=== PATIENT | female | born 1955 | race Two or more races ===

== ENCOUNTER 2020-03-01 09:57 | Emergency (ER) | payer OTHER, MEDICAID ==
[~2020-03-01] VITALS: Ht 160 cm; Wt 63.5 kg
[2020-03-01 10:04] VITALS: BP 188/85
[2020-03-01] MEDS ORDERED: traMADol HCL 50 MG TAB PO ONE (10:15)
== END 2020-03-01 11:17 | disposition home or self-care (01) ==
LOC: ER 09:57
DX: I10 Essential (primary) hypertension (principal); G62.9 Polyneuropathy, unspecified; F17.210 Nicotine dependence, cigarettes, uncomplicated; Z76.0 Encounter for issue of repeat prescription

== ENCOUNTER 2020-06-03 11:28 | Emergency (ER) | payer OTHER, MEDICAID ==
[~2020-06-03] VITALS: Ht 157.5 cm; Wt 63.5 kg
[2020-06-03 12:10] VITALS: BP 140/68
[2020-06-03] MEDS ORDERED: traMADol HCL 50 MG TAB PO ONE (13:15)
== END 2020-06-03 14:02 | disposition home or self-care (01) ==
LOC: ER 11:28
DX: G89.29 Other chronic pain (principal)

== ENCOUNTER 2024-04-01 14:12 | Inpatient (IN) | payer OTHER, MEDICAID ==
[~2024-04-01] VITALS: Ht 157.5 cm; Wt 63.5 kg
[2024-04-01] MEDS ORDERED: ONDANSETRON HCL 4 MG/2 ML VIAL IV PRN (18:00)
[2024-04-01] MEDS ORDERED: DEXTROSE (50%) 50ML SYRG IV PRN (18:00)
[2024-04-01] MEDS ORDERED: VANCOMYCIN PER PHARMACY 0 MG IV SCH (18:00)
[2024-04-01] MEDS ORDERED: ACETAMINOPHEN 325 MG TAB PO PRN (18:00)
[2024-04-01 18:21] VITALS: BP 158/72; PULSE 84; RESP 18; TEMP 97.4; O2SAT 95
[2024-04-01] MEDS ORDERED: INFLUENZA QUAD 2023-2024 0.5 ML SYRG IM ONE (18:45)
[2024-04-01] MEDS ORDERED: PNEUMOCOCCAL VACC POLYS 25 MCG/0.5 ML VIAL IM ONE (18:45)
[2024-04-01] MEDS ORDERED: GABA-339 PO (18:46)
[2024-04-01] MEDS ORDERED: TRAM50TA2 PO (18:46)
[2024-04-01 20:00] VITALS: PULSE 92; RESP 16; O2SAT 96
[2024-04-01 21:00] VITALS: BP 148/60; PULSE 92; RESP 16; TEMP 98.1; O2SAT 96
[2024-04-01] MEDS: PIPERACILLIN-TAZOB 3.375GM 100 ML IV ONE (21:24)
[2024-04-01] MEDS ORDERED: VANCOMYCIN 1GM/200ML 200 ML IV ONE (22:15)
[2024-04-01] MEDS: HYDROcodone-ACET 5/325MG TAB PO PRN (22:37)
[2024-04-01] MEDS: HEPARIN SODIUM (PORCINE) 5000 UNITS/ML 1ML VIAL SC SCH (22:40)
[2024-04-01] MEDS: VANCOMYCIN 1GM/200ML 200 ML IV ONE (22:41)
[2024-04-01] MEDS: ACCU-CHEK COMFORT CURVE STRIP VI SCH (22:55)
[2024-04-01] MEDS: InsuLIN REG 1unit/0.01ml Soln (100units/ml) SC SCH (22:57)
[2024-04-02] VITALS (7 sets, daily range): BP systolic 130–155; BP diastolic 52–71; PULSE 72–92; RESP 16–19; TEMP 97.8–98.6; O2SAT 94–98
[2024-04-02] MEDS: MORPHINE SULFATE INJ 2 MG/ml SYRG IV PRN (04:06)
[2024-04-02] MEDS: PIPERACILLIN-TAZOB 3.375GM 100 ML IV SCH (05:38)
[2024-04-02] MEDS: InsuLIN REG 1unit/0.01ml Soln (100units/ml) SC SCH (06:35)
[2024-04-02 06:46] LABS: Basophils # (auto) 0 10 ^3/uL (0-0.2); Basophils % (auto) 0.3 % (0.0-2.0); Eosinophils # (auto) 0.1 10 ^3/uL (0-0.8); Eosinophils % (auto) 1.2 % (0.0-7.0); Hematocrit 29.6 % (36.0-46.0); Lymphocytes # (auto) 1.6 10 ^3/uL (0.4-5.4); Mean Corpuscular Hemoglobin 30.2 pg (28.0-32.0); Mean Corpuscular Hgb Conc. 33.9 g/dL (32.0-36.0); Mean Corpuscular Volume 89.1 fL (80.0-100.0); Monocytes # (auto) 0.6 10 ^3/uL (0-1.3); Neutrophils # (auto) 5.2 10 ^3/uL (1.6-8.6); Neutrophils % (auto) 69.5 % (37.0-80.0); Red Blood Cells 3.32 10^6/uL (4.0-5.20); Red Cell Distribution Width 14.1 % (11.8-14.3); White Blood Cell 7.5 10^3/uL (4.4-10.8)
[2024-04-02 07:08] LABS: Calcium 8.2 mg/dL (8.7-10.4); Chloride 98 mmol/L (98-107); Potassium 3.8 mmol/L (3.5-5.1); Sodium 132 mmol/L (136-145)
[2024-04-02 07:09] LABS: Anion Gap 3 (5-15); Carbon Dioxide 31 mmol/L (20-30)
[2024-04-02 07:14] LABS: Glucose 291 mg/dL (74-106)
[2024-04-02 08:49] LABS: BUN/Creatinine Ratio 18.6 (10.0-20.0); Blood Urea Nitrogen 18 mg/dL (9-23)
[2024-04-02] MEDS: GABAPENTIN 300 MG CAP PO ONE (15:29)
[2024-04-02] MEDS: VANCOMYCIN 1GM/200ML 200 ML IV SCH (18:10)
[2024-04-02] MEDS: INSULIN LANTUS (GLARGINE) 1 /0.01ml (100units/ml) SC SCH (21:44)
[2024-04-03] VITALS (7 sets, daily range): BP systolic 121–149; BP diastolic 55–72; PULSE 57–92; RESP 18–22; TEMP 97.6–98.4; O2SAT 95–100
[2024-04-03 09:00] LABS: Basophils # (auto) 0 10 ^3/uL (0-0.2); Basophils % (auto) 0.5 % (0.0-2.0); Eosinophils # (auto) 0.1 10 ^3/uL (0-0.8); Eosinophils % (auto) 0.7 % (0.0-7.0); Hematocrit 30.7 % (36.0-46.0); Hemoglobin 10.5 g/dL (12.2-16.2); Lymphocytes # (auto) 1.9 10 ^3/uL (0.4-5.4); Lymphocytes % (auto) 23.7 % (10.0-50.0); Mean Corpuscular Hemoglobin 30.4 pg (28.0-32.0); Mean Corpuscular Hgb Conc. 34.2 g/dL (32.0-36.0); Mean Corpuscular Volume 88.8 fL (80.0-100.0); Monocytes # (auto) 0.5 10 ^3/uL (0-1.3); Monocytes % (auto) 6.4 % (0.0-12.0); Neutrophils # (auto) 5.5 10 ^3/uL (1.6-8.6); Neutrophils % (auto) 68.7 % (37.0-80.0); Red Blood Cells 3.46 10^6/uL (4.0-5.20)
[2024-04-03 09:12] LABS: Anion Gap 3 (5-15); Carbon Dioxide 32 mmol/L (20-30); Chloride 100 mmol/L (98-107); Potassium 3.3 mmol/L (3.5-5.1); Sodium 135 mmol/L (136-145)
[2024-04-03 09:13] LABS: Calcium 8.5 mg/dL (8.7-10.4)
[2024-04-03 09:18] LABS: BUN/Creatinine Ratio 16.7 (10.0-20.0); Blood Urea Nitrogen 13 mg/dL (9-23); Glucose 141 mg/dL (74-106)
[2024-04-03] MEDS: GABAPENTIN 300 MG CAP PO SCH (09:32)
[2024-04-04 01:00] VITALS: BP 141/63; PULSE 70; RESP 19; TEMP 98.3; O2SAT 99
[2024-04-04 05:00] VITALS: BP 153/86; PULSE 87; RESP 17; TEMP 98.1; O2SAT 98
[2024-04-04 06:57] LABS: Basophils # (auto) 0 10 ^3/uL (0-0.2); Basophils % (auto) 0.5 % (0.0-2.0); Eosinophils # (auto) 0.1 10 ^3/uL (0-0.8); Eosinophils % (auto) 1.7 % (0.0-7.0); Hemoglobin 10.4 g/dL (12.2-16.2); Lymphocytes # (auto) 2.4 10 ^3/uL (0.4-5.4); Mean Corpuscular Hemoglobin 29.9 pg (28.0-32.0); Mean Corpuscular Hgb Conc. 33.7 g/dL (32.0-36.0); Mean Corpuscular Volume 88.7 fL (80.0-100.0); Monocytes # (auto) 0.6 10 ^3/uL (0-1.3); Neutrophils # (auto) 5.1 10 ^3/uL (1.6-8.6); Neutrophils % (auto) 61.8 % (37.0-80.0); Red Cell Distribution Width 14.1 % (11.8-14.3); White Blood Cell 8.2 10^3/uL (4.4-10.8)
[2024-04-04 07:04] LABS: Chloride 101 mmol/L (98-107); Potassium 4.1 mmol/L (3.5-5.1); Sodium 135 mmol/L (136-145)
[2024-04-04 07:05] LABS: Anion Gap 3 (5-15); Calcium 8.5 mg/dL (8.7-10.4); Carbon Dioxide 31 mmol/L (20-30)
[2024-04-04 07:10] LABS: BUN/Creatinine Ratio 14.6 (10.0-20.0); Blood Urea Nitrogen 14 mg/dL (9-23); Glucose 86 mg/dL (74-106)
[2024-04-04 08:25] VITALS: BP 127/79; PULSE 74; RESP 18; TEMP 98.4; O2SAT 97
[2024-04-04 12:20] VITALS: BP 112/52; PULSE 76; RESP 18; TEMP 98.3; O2SAT 96
[2024-04-04 16:25] VITALS: BP 138/69; PULSE 77; RESP 16; TEMP 98.2; O2SAT 97
[2024-04-04 21:00] VITALS: BP 121/59; PULSE 82; RESP 18; TEMP 98; O2SAT 96
[2024-04-05] VITALS (8 sets, daily range): BP systolic 120–145; BP diastolic 56–71; PULSE 69–87; RESP 16–18; TEMP 97.1–99.1; O2SAT 94–98
[2024-04-05 01:28] LABS: INR 1.04 (0.9-1.15); Partial Thromboplastin Time 28.4 SEC (24.5-34.5)
[2024-04-05 06:08] LABS: Urine Bacteria None Seen /hpf (None Seen)
[2024-04-05 06:47] LABS: Urine Blood 2+ /uL (Negative); Urine Budding Yeast LOADED /hpf (None Seen); Urine Clarity Ex.Turbid (Clear); Urine Color Brown (Yellow); Urine Protein, UAD 2+ (Negative); Urine Specific Gravity 1.015 (1.001-1.035); Urine Urobilinogen Normal (Negative); Urine WBC 3199 /hpf (0 - 5); Urine WBC Clumps PRESENT /hpf (None Seen)
[2024-04-05 06:55] LABS: Chloride 103 mmol/L (98-107); Potassium 4.3 mmol/L (3.5-5.1); Sodium 136 mmol/L (136-145)
[2024-04-05 06:56] LABS: Anion Gap 2 (5-15); Calcium 8.5 mg/dL (8.7-10.4); Carbon Dioxide 31 mmol/L (20-30)
[2024-04-05 07:00] LABS: Basophils # (auto) 0.1 10 ^3/uL (0-0.2); Basophils % (auto) 0.7 % (0.0-2.0); Eosinophils # (auto) 0.2 10 ^3/uL (0-0.8); Hematocrit 31.9 % (36.0-46.0); Hemoglobin 10.6 g/dL (12.2-16.2); Lymphocytes # (auto) 2.3 10 ^3/uL (0.4-5.4); Lymphocytes % (auto) 31.4 % (10.0-50.0); Mean Corpuscular Hemoglobin 29.7 pg (28.0-32.0); Mean Corpuscular Hgb Conc. 33.3 g/dL (32.0-36.0); Mean Corpuscular Volume 89.3 fL (80.0-100.0); Monocytes # (auto) 0.5 10 ^3/uL (0-1.3); Monocytes % (auto) 6.6 % (0.0-12.0); Neutrophils # (auto) 4.2 10 ^3/uL (1.6-8.6); Neutrophils % (auto) 58.3 % (37.0-80.0); Red Blood Cells 3.58 10^6/uL (4.0-5.20); Red Cell Distribution Width 13.9 % (11.8-14.3); White Blood Cell 7.2 10^3/uL (4.4-10.8)
[2024-04-05 07:01] LABS: BUN/Creatinine Ratio 13.6 (10.0-20.0); Blood Urea Nitrogen 14 mg/dL (9-23); Glucose 117 mg/dL (74-106)
[2024-04-06] VITALS (9 sets, daily range): BP systolic 118–148; BP diastolic 55–70; PULSE 68–87; RESP 14–20; TEMP 97.8–98.5; O2SAT 94–99
[2024-04-06 07:12] LABS: Basophils # (auto) 0 10 ^3/uL (0-0.2); Basophils % (auto) 0.6 % (0.0-2.0); Eosinophils # (auto) 0.2 10 ^3/uL (0-0.8); Eosinophils % (auto) 2.4 % (0.0-7.0); Hematocrit 27.4 % (36.0-46.0); Hemoglobin 9.5 g/dL (12.2-16.2); Lymphocytes % (auto) 25.7 % (10.0-50.0); Mean Corpuscular Hemoglobin 30.9 pg (28.0-32.0); Mean Corpuscular Hgb Conc. 34.6 g/dL (32.0-36.0); Mean Corpuscular Volume 89.3 fL (80.0-100.0); Monocytes # (auto) 0.5 10 ^3/uL (0-1.3); Neutrophils % (auto) 64.3 % (37.0-80.0); Red Blood Cells 3.07 10^6/uL (4.0-5.20); Red Cell Distribution Width 14.2 % (11.8-14.3); White Blood Cell 7.7 10^3/uL (4.4-10.8)
[2024-04-06 07:23] LABS: Anion Gap 4 (5-15); Carbon Dioxide 28 mmol/L (20-30); Chloride 102 mmol/L (98-107); Potassium 4.1 mmol/L (3.5-5.1); Sodium 134 mmol/L (136-145)
[2024-04-06 07:24] LABS: Calcium 8.3 mg/dL (8.7-10.4)
[2024-04-06 07:29] LABS: BUN/Creatinine Ratio 14.6 (10.0-20.0); Blood Urea Nitrogen 15 mg/dL (9-23); Glucose 199 mg/dL (74-106)
[2024-04-06] MEDS: BUPIVACAINE 0.25% INJ 50ML VIAL ONE (16:28)
[2024-04-06] MEDS ORDERED: MIDAZOLAM HCL 2MG/2ML 2ml VIAL (1mg/ml) ONE (16:30)
[2024-04-06] MEDS ORDERED: MEPERIDINE HCL (25 MG/ML) 1ML VIAL ONE (16:30)
[2024-04-06] MEDS ORDERED: PROPOFOL 10 MG/ML 20 ML IV ONE (17:06)
[2024-04-07] VITALS (8 sets, daily range): BP systolic 108–150; BP diastolic 43–73; PULSE 63–84; RESP 16–71; TEMP 98.1–98.7; O2SAT 94–97
[2024-04-07 06:53] LABS: Basophils # (auto) 0.1 10 ^3/uL (0-0.2); Basophils % (auto) 0.7 % (0.0-2.0); Eosinophils # (auto) 0.2 10 ^3/uL (0-0.8); Lymphocytes # (auto) 1.8 10 ^3/uL (0.4-5.4); Monocytes # (auto) 0.7 10 ^3/uL (0-1.3); Red Cell Distribution Width 14.5 % (11.8-14.3); White Blood Cell 8.1 10^3/uL (4.4-10.8)
[2024-04-07 06:56] LABS: Eosinophils % (auto) 2.5 % (0.0-7.0); Hematocrit 29.6 % (36.0-46.0); Hemoglobin 9.9 g/dL (12.2-16.2); Lymphocytes % (auto) 22.3 % (10.0-50.0); Mean Corpuscular Hemoglobin 30.9 pg (28.0-32.0); Mean Corpuscular Hgb Conc. 33.5 g/dL (32.0-36.0); Mean Corpuscular Volume 92.2 fL (80.0-100.0); Monocytes % (auto) 8.3 % (0.0-12.0); Neutrophils # (auto) 5.3 10 ^3/uL (1.6-8.6); Neutrophils % (auto) 66.2 % (37.0-80.0); Nucleated Red Blood Cells % 0.1 %; Red Blood Cells 3.21 10^6/uL (4.0-5.20)
[2024-04-07 07:05] LABS: Carbon Dioxide 27 mmol/L (20-30); Chloride 103 mmol/L (98-107); Potassium 4.8 mmol/L (3.5-5.1)
[2024-04-07 07:06] LABS: Calcium 8.3 mg/dL (8.7-10.4)
[2024-04-07 07:11] LABS: BUN/Creatinine Ratio 16.3 (10.0-20.0); Blood Urea Nitrogen 16 mg/dL (9-23); Glucose 192 mg/dL (74-106)
[2024-04-07 07:55] LABS: Anion Gap 5 (5-15); Sodium 135 mmol/L (136-145)
[2024-04-07] MEDS: VANCOMYCIN 1GM/200ML 200 ML IV SCH (10:19)
[2024-04-07] MEDS: AMPICILLIN & SULBACTAM SODIUM 3 GM in SODIUM CHL 0.9% 100 ML IV SCH (17:17)
[2024-04-07] MEDS: LACTULOSE 20Gm/30ML SOLN PO PRN (19:20)
[2024-04-08 01:00] VITALS: BP 135/62; PULSE 74; RESP 18; TEMP 98.2; O2SAT 97
[2024-04-08 05:00] VITALS: BP 137/66; PULSE 70; RESP 18; TEMP 97.6; O2SAT 96
[2024-04-08 06:59] LABS: Basophils # (auto) 0.1 10 ^3/uL (0-0.2); Eosinophils # (auto) 0.2 10 ^3/uL (0-0.8); Hemoglobin 9.8 g/dL (12.2-16.2); Monocytes # (auto) 0.6 10 ^3/uL (0-1.3); Neutrophils # (auto) 3.8 10 ^3/uL (1.6-8.6); Nucleated Red Blood Cells % 0.1 %
[2024-04-08 07:03] LABS: Basophils % (auto) 0.8 % (0.0-2.0); Eosinophils % (auto) 3.3 % (0.0-7.0); Hematocrit 28.9 % (36.0-46.0); Lymphocytes # (auto) 2.1 10 ^3/uL (0.4-5.4); Lymphocytes % (auto) 30.5 % (10.0-50.0); Mean Corpuscular Hemoglobin 30.6 pg (28.0-32.0); Monocytes % (auto) 9.4 % (0.0-12.0); Red Blood Cells 3.21 10^6/uL (4.0-5.20); Red Cell Distribution Width 14.2 % (11.8-14.3); White Blood Cell 6.8 10^3/uL (4.4-10.8)
[2024-04-08 07:04] LABS: Chloride 105 mmol/L (98-107); Potassium 3.8 mmol/L (3.5-5.1); Sodium 135 mmol/L (136-145)
[2024-04-08 07:05] LABS: Anion Gap 5 (5-15); Calcium 8.2 mg/dL (8.7-10.4); Carbon Dioxide 25 mmol/L (20-30)
[2024-04-08 07:10] LABS: BUN/Creatinine Ratio 12.3 (10.0-20.0); Blood Urea Nitrogen 10 mg/dL (9-23); Glucose 185 mg/dL (74-106)
[2024-04-08 09:08] VITALS: BP 160/77; PULSE 75; RESP 15; TEMP 98; O2SAT 97
[2024-04-08 12:46] VITALS: BP 134/65; PULSE 74; RESP 16; TEMP 98.3; O2SAT 96
[2024-04-08] MEDS ORDERED: AUG875T PO (14:51)
[2024-04-08 16:38] VITALS: BP 153/79; PULSE 77; RESP 15; TEMP 97.9; O2SAT 96
== END 2024-04-08 18:59 | disposition home health service (06) | DRG 264 ==
LOC: UNDOADMIN 17:20 → CENTRAL 17:20
PROVIDERS: ADMIT Internal Medicine; ATTEND Internal Medicine
PROC: 0JBQ0ZZ Excision of Right Foot Subcutaneous Tissue and Fascia, Open Approach (ICD-10-PCS; principal; 2024-04-06 16:34)
DX: E11.52 Type 2 diabetes mellitus with diabetic peripheral angiopathy with gangrene (principal); M86.8X7 Other osteomyelitis, ankle and foot; L97.419 Non-pressure chronic ulcer of right heel and midfoot with unspecified severity; I96 Gangrene, not elsewhere classified; E11.621 Type 2 diabetes mellitus with foot ulcer; E11.69 Type 2 diabetes mellitus with other specified complication; L97.519 Non-pressure chronic ulcer of other part of right foot with unspecified severity; D72.829 Elevated white blood cell count, unspecified; E11.65 Type 2 diabetes mellitus with hyperglycemia; E11.42 Type 2 diabetes mellitus with diabetic polyneuropathy; F17.200 Nicotine dependence, unspecified, uncomplicated; Z90.49 Acquired absence of other specified parts of digestive tract; Z79.84 Long term (current) use of oral hypoglycemic drugs; Z87.81 Personal history of (healed) traumatic fracture
CPT/HCPCS: 36415; 71045; 73701; 73718; 80048; 80202; 81001; 82962; 85025; 85610; 85730; 86850; 86900; 86901; 87077; 87081; 87186; 87205; 90686; 93005; 93926; G0378; J1815; J2250; J2543; J2704; J3490

== ENCOUNTER 2024-04-27 10:30 | Emergency (ER) | payer OTHER, MEDICAID ==
[~2024-04-27] VITALS: Ht 157.5 cm; Wt 55.0 kg
[~2024-04-27 10:30] MED LIST: AUG875T PO; GABA-339 PO
[2024-04-27 11:50] LABS: Basophils # (auto) 0.1 10 ^3/uL (0-0.2); Basophils % (auto) 1.1 % (0.0-2.0); Eosinophils # (auto) 0.1 10 ^3/uL (0-0.8); Hemoglobin 10.1 g/dL (12.2-16.2); Monocytes # (auto) 0.3 10 ^3/uL (0-1.3); Neutrophils # (auto) 5.3 10 ^3/uL (1.6-8.6); Nucleated Red Blood Cells % 0.1 %; White Blood Cell 7.1 10^3/uL (4.4-10.8)
[2024-04-27 11:52] LABS: Eosinophils % (auto) 1.9 % (0.0-7.0); Lymphocytes # (auto) 1.3 10 ^3/uL (0.4-5.4); Lymphocytes % (auto) 17.6 % (10.0-50.0); Mean Corpuscular Hemoglobin 30.9 pg (28.0-32.0); Mean Corpuscular Hgb Conc. 33.8 g/dL (32.0-36.0); Mean Corpuscular Volume 91.6 fL (80.0-100.0); Monocytes % (auto) 4.5 % (0.0-12.0); Neutrophils % (auto) 74.9 % (37.0-80.0); Red Blood Cells 3.27 10^6/uL (4.0-5.20); Red Cell Distribution Width 14.6 % (11.8-14.3)
[2024-04-27] MEDS: MORPHINE SULFATE 4 MG/ML SYR/VIAL IV ONE (11:54)
[2024-04-27 12:11] LABS: Chloride 101 mmol/L (98-107); Potassium 3.5 mmol/L (3.5-5.1); Sodium 138 mmol/L (136-145)
[2024-04-27 12:12] LABS: Anion Gap 5 (5-15); Calcium 9.1 mg/dL (8.7-10.4); Carbon Dioxide 32 mmol/L (20-30)
[2024-04-27 12:17] LABS: BUN/Creatinine Ratio 15.3 (10.0-20.0); Blood Urea Nitrogen 13 mg/dL (9-23); Glucose 208 mg/dL (74-106)
[2024-04-27 12:30] LABS: Urine Bacteria None Seen /hpf (None Seen)
[2024-04-27 12:45] LABS: Urine Blood 1+ /uL (Negative); Urine Clarity Clear (Clear); Urine Color Light-Yellow (Yellow); Urine Hyaline Cast FEW /lpf (0 - 2); Urine Protein, UAD 3+ (Negative); Urine Specific Gravity 1.018 (1.001-1.035); Urine Urobilinogen Normal (Negative); Urine WBC 5 /hpf (0 - 5); Urine pH 6.5 (5.0-9.0)
[2024-04-27] MEDS: cefTRIAXone 2GM/50ML D5W 50 ML IV ONE (13:05)
[2024-04-27 14:20] VITALS: BP 131/71; PULSE 73; RESP 14; TEMP 97.8; O2SAT 97
[2024-04-27] MEDS: HYDROcodone-ACET 7.5/325MG TAB PO ONE (14:57)
== END 2024-04-27 15:28 | disposition home or self-care (01) ==
LOC: ER 10:30
DX: S52.602A Unspecified fracture of lower end of left ulna, initial encounter for closed fracture (principal); S52.502A Unspecified fracture of the lower end of left radius, initial encounter for closed fracture; F17.210 Nicotine dependence, cigarettes, uncomplicated; W18.09XA Striking against other object with subsequent fall, initial encounter; Y93.01 Activity, walking, marching and hiking; Y92.89 Other specified places as the place of occurrence of the external cause; Y99.8 Other external cause status
CPT/HCPCS: 36415; 73110; 80048; 81001; 83880; 84484; 85025; 93005; 96365; 96375; 99285; J0696; J2270

== ENCOUNTER 2024-04-29 11:50 | Inpatient (IN) | payer OTHER, MEDICAID ==
[~2024-04-29] VITALS: Ht 157.5 cm; Wt 140.7 kg
[2024-04-29 13:01] VITALS: PULSE 75; RESP 19; O2SAT 93
[2024-04-29 13:03] LABS: Basophils # (auto) 0.1 10 ^3/uL (0-0.2); Eosinophils # (auto) 0.1 10 ^3/uL (0-0.8); Hemoglobin 9.5 g/dL (12.2-16.2); Lymphocytes # (auto) 1.4 10 ^3/uL (0.4-5.4); Lymphocytes % (auto) 17.1 % (10.0-50.0); Mean Corpuscular Volume 91.3 fL (80.0-100.0); Monocytes # (auto) 0.4 10 ^3/uL (0-1.3); Neutrophils # (auto) 6.3 10 ^3/uL (1.6-8.6); White Blood Cell 8.3 10^3/uL (4.4-10.8)
[2024-04-29 13:07] LABS: Basophils % (auto) 0.7 % (0.0-2.0); Eosinophils % (auto) 1.3 % (0.0-7.0); Hematocrit 28.3 % (36.0-46.0); Mean Corpuscular Hemoglobin 30.8 pg (28.0-32.0); Mean Corpuscular Hgb Conc. 33.7 g/dL (32.0-36.0); Monocytes % (auto) 5.4 % (0.0-12.0); Neutrophils % (auto) 75.5 % (37.0-80.0); Platelet Count (auto) 641 10^3/uL (140-450); Red Cell Distribution Width 14.7 % (11.8-14.3)
[2024-04-29] MEDS: cefTRIAXone 1GM/50ML D5W 50 ML IV ONE (13:07)
[2024-04-29 13:18] LABS: Anion Gap 6 (5-15); Carbon Dioxide 29 mmol/L (20-30); Chloride 101 mmol/L (98-107); Potassium 3.9 mmol/L (3.5-5.1); Sodium 136 mmol/L (136-145)
[2024-04-29 13:19] LABS: Calcium 8.5 mg/dL (8.7-10.4)
[2024-04-29 13:23] LABS: Glucose 297 mg/dL (74-106)
[2024-04-29 13:24] LABS: BUN/Creatinine Ratio 20.7 (10.0-20.0); Blood Urea Nitrogen 19 mg/dL (9-23)
[2024-04-29 17:00] VITALS: PULSE 71; RESP 18; O2SAT 94
[2024-04-29] MEDS ORDERED: DEXTROSE (50%) 50ML SYRG IV PRN (17:15)
[2024-04-29] MEDS ORDERED: VANCOMYCIN PER PHARMACY 0 MG IV SCH (17:15)
[2024-04-29] MEDS ORDERED: NITROGLYCERIN 0.4 MG SL TAB SL PRN (17:15)
[2024-04-29] MEDS ORDERED: ONDANSETRON HCL 4 MG/2 ML VIAL IV PRN (17:15)
[2024-04-29] MEDS: LOSARTAN POTASSIUM 25 MG TAB PO SCH (18:00)
[2024-04-29] MEDS: VANCOMYCIN 1GM/200ML 200 ML IV ONE (18:01)
[2024-04-29] MEDS: MORPHINE SULFATE INJ 2 MG/ml SYRG IV PRN (18:03)
[2024-04-29] MEDS: ACCU-CHEK COMFORT CURVE STRIP VI SCH (22:20)
[2024-04-29] MEDS: GABAPENTIN 300 MG CAP PO SCH (22:26)
[2024-04-29] MEDS: INSULIN LANTUS (GLARGINE) 1 /0.01ml (100units/ml) SC SCH (22:27)
[2024-04-29] MEDS: InsuLIN REG 1unit/0.01ml Soln (100units/ml) SC SCH (22:27)
[2024-04-29] MEDS ORDERED: EMPA1TAB3 PO (23:06)
[2024-04-29] MEDS ORDERED: INSU100I4 SC (23:06)
[2024-04-29 23:10] VITALS: BP 157/69; PULSE 75; RESP 18; O2SAT 95
[2024-04-30 01:00] VITALS: BP_SYST 114; BP_SYST 169; BP_DIAS 55; BP_DIAS 75; PULSE 54; PULSE 78; RESP 20; TEMP 98; TEMP 98.2; O2SAT 96
[2024-04-30] MEDS: HYDROcodone-ACET 5/325MG TAB PO PRN (01:42)
[2024-04-30 05:00] VITALS: BP_SYST 100; BP_SYST 132; BP_DIAS 40; BP_DIAS 56; PULSE 52; PULSE 65; RESP 18; RESP 20; TEMP 97.9; TEMP 98; O2SAT 95; O2SAT 96
[2024-04-30 06:11] LABS: Eosinophils # (auto) 0.2 10 ^3/uL (0-0.8); Lymphocytes # (auto) 1.6 10 ^3/uL (0.4-5.4); Monocytes # (auto) 0.4 10 ^3/uL (0-1.3); Nucleated Red Blood Cells % 0.1 %; White Blood Cell 6.3 10^3/uL (4.4-10.8)
[2024-04-30 06:13] LABS: Basophils # (auto) 0.1 10 ^3/uL (0-0.2); Basophils % (auto) 0.9 % (0.0-2.0); Eosinophils % (auto) 2.6 % (0.0-7.0); Hematocrit 28.4 % (36.0-46.0); Hemoglobin 9.5 g/dL (12.2-16.2); Lymphocytes % (auto) 25.4 % (10.0-50.0); Mean Corpuscular Hemoglobin 30.9 pg (28.0-32.0); Mean Corpuscular Hgb Conc. 33.5 g/dL (32.0-36.0); Mean Corpuscular Volume 92.2 fL (80.0-100.0); Monocytes % (auto) 7.1 % (0.0-12.0); Platelet Count (auto) 565 10^3/uL (140-450); Red Blood Cells 3.08 10^6/uL (4.0-5.20); Red Cell Distribution Width 14.5 % (11.8-14.3)
[2024-04-30 06:24] LABS: Anion Gap 6 (5-15); Carbon Dioxide 29 mmol/L (20-30); Chloride 102 mmol/L (98-107); Potassium 3.1 mmol/L (3.5-5.1); Sodium 137 mmol/L (136-145)
[2024-04-30 06:26] LABS: Calcium 8.6 mg/dL (8.7-10.4)
[2024-04-30 06:30] LABS: BUN/Creatinine Ratio 17.2 (10.0-20.0); Blood Urea Nitrogen 15 mg/dL (9-23); Glucose 108 mg/dL (74-106)
[2024-04-30 07:50] LABS: INR 1.08 (0.9-1.15); Prothrombin Time 11.4 sec (9.3-11.8)
[2024-04-30 09:00] VITALS: BP 168/76; PULSE 73; RESP 20; TEMP 98.1; O2SAT 96
[2024-04-30] MEDS: cefTRIAXone 1GM/50ML D5W 50 ML IV SCH (09:00)
[2024-04-30] MEDS: FAMOTIDINE 20 MG TAB PO SCH (09:34)
[2024-04-30] MEDS: POTASSIUM CHLORIDE 20 MEQ, LIDOCAINE 1% (LOCAL ANESTH.) 2 ML in SODIUM CHL 0.9% 100 ML IV ONE (10:45)
[2024-04-30] MEDS: VANCOMYCIN 1GM/200ML 200 ML IV SCH (12:16)
[2024-04-30] MEDS: POTASSIUM EFFERVESENT TAB 25 MEQ PO ONE (12:30)
[2024-04-30] MEDS: MAGNESIUM SULFATE 1GM/100ML 100 ML IV SCH (13:43)
[2024-04-30 16:34] VITALS: BP 142/83; PULSE 81; RESP 12; TEMP 98.3; O2SAT 98
[2024-04-30] MEDS: Juven Orange Powder PACKET 27.5gm PO SCH (18:00)
[2024-04-30 21:00] VITALS: BP 134/60; PULSE 84; RESP 17; TEMP 98.3; O2SAT 95
[2024-05-01] VITALS (8 sets, daily range): BP systolic 116–155; BP diastolic 55–83; PULSE 75–94; RESP 13–18; TEMP 97.8–98.9; O2SAT 93–100
[2024-05-01 07:05] LABS: Anion Gap 4 (5-15); Carbon Dioxide 31 mmol/L (20-30); Chloride 102 mmol/L (98-107); Potassium 4.7 mmol/L (3.5-5.1); Sodium 137 mmol/L (136-145)
[2024-05-01 07:06] LABS: Calcium 8.7 mg/dL (8.7-10.4)
[2024-05-01 07:10] LABS: Glucose 314 mg/dL (74-106)
[2024-05-01 07:11] LABS: BUN/Creatinine Ratio 26.5 (10.0-20.0); Magnesium 2.1 mg/dL (1.6-2.6)
[2024-05-01 07:21] LABS: Blood Urea Nitrogen 26 mg/dL (9-23)
[2024-05-01 07:27] LABS: Urine Bacteria FEW /hpf (None Seen); Urine Blood TRACE /uL (Negative); Urine Color Light-Yellow (Yellow); Urine Protein, UAD 2+ (Negative); Urine Specific Gravity 1.014 (1.001-1.035); Urine Urobilinogen Normal (Negative); Urine WBC 181 /hpf (0 - 5); Urine pH 7.5 (5.0-9.0)
[2024-05-01 07:28] LABS: Urine Clarity Cloudy (Clear)
[2024-05-01] MEDS ORDERED: fentaNYL CITRATE 100 MCG/2 ML VL ONE (07:31)
[2024-05-01] MEDS ORDERED: MIDAZOLAM HCL 2MG/2ML 2ml VIAL (1mg/ml) ONE (07:31)
[2024-05-01] MEDS ORDERED: PROPOFOL 10 MG/ML 20 ML IV ONE (07:57)
[2024-05-01] MEDS ORDERED: HYDROmorphone HCL 2 MG/ML VL/or syr ONE (08:04)
[2024-05-01] MEDS: BUPIVACAINE 0.25% INJ 50ML VIAL ONE (08:25)
[2024-05-01] MEDS ORDERED: GLYCOPYRROLATE 0.2 MG/ML 1ML VIAL ONE (08:35)
[2024-05-01] MEDS ORDERED: METOPROLOL TARTRATE 1MG/1ML-5ML VIAL IV ONE (08:51)
[2024-05-01] MEDS ORDERED: NEOSTIGMINE 1 MG/ML INJ (10mg/10ML VIAL) ONE (08:52)
[2024-05-01] MEDS ORDERED: fentaNYL CITRATE 100 MCG/2 ML VL IV PRN (09:15)
[2024-05-01] MEDS: KETOROLAC TROMETH 30 MG/ML 1ML VIAL ONE (09:32)
[2024-05-01] MEDS: hydrALAZINE HCL 20 MG/ML VL ONE (10:07)
[2024-05-01] MEDS: ONDANSETRON HCL 4 MG/2 ML VIAL IV ONE (11:39)
[2024-05-01] MEDS: KETOROLAC TROMETH 30 MG/ML 1ML VIAL IV ONE (11:39)
[2024-05-01] MEDS: hydrALAZINE HCL 20 MG/ML VL IV ONE (11:40)
[2024-05-02 05:00] VITALS: BP 146/79; PULSE 103; RESP 16; TEMP 98.5; O2SAT 96
[2024-05-02 06:28] LABS: Chloride 105 mmol/L (98-107); Potassium 4.1 mmol/L (3.5-5.1); Sodium 138 mmol/L (136-145)
[2024-05-02 06:29] LABS: Anion Gap 6 (5-15); Calcium 8.3 mg/dL (8.7-10.4); Carbon Dioxide 27 mmol/L (20-30)
[2024-05-02 06:34] LABS: BUN/Creatinine Ratio 17.5 (10.0-20.0); Blood Urea Nitrogen 17 mg/dL (9-23); Glucose 141 mg/dL (74-106)
[2024-05-02 06:41] LABS: Basophils # (auto) 0.1 10 ^3/uL (0-0.2); Hematocrit 29.9 % (36.0-46.0); Lymphocytes # (auto) 1.8 10 ^3/uL (0.4-5.4); Lymphocytes % (auto) 16.6 % (10.0-50.0); Mean Corpuscular Hemoglobin 30.7 pg (28.0-32.0); Mean Corpuscular Hgb Conc. 33.3 g/dL (32.0-36.0); Monocytes # (auto) 0.6 10 ^3/uL (0-1.3); White Blood Cell 10.9 10^3/uL (4.4-10.8)
[2024-05-02 06:43] LABS: Basophils % (auto) 0.6 % (0.0-2.0); Eosinophils # (auto) 0.2 10 ^3/uL (0-0.8); Eosinophils % (auto) 1.4 % (0.0-7.0); Mean Corpuscular Volume 92.2 fL (80.0-100.0); Monocytes % (auto) 5.5 % (0.0-12.0); Neutrophils # (auto) 8.2 10 ^3/uL (1.6-8.6); Neutrophils % (auto) 75.9 % (37.0-80.0); Nucleated Red Blood Cells % 0.1 %; Platelet Count (auto) 563 10^3/uL (140-450); Red Blood Cells 3.24 10^6/uL (4.0-5.20); Red Cell Distribution Width 15.1 % (11.8-14.3)
[2024-05-02 09:07] VITALS: BP 138/80; PULSE 104; RESP 18; TEMP 98.5; O2SAT 94
[2024-05-02] MEDS ORDERED: KETAMINE 50mg/ML 1ml syringe ONE (09:58)
[2024-05-02] MEDS ORDERED: LIDOCAINE 1% INJ PF 5ML AMP ONE (09:59)
[2024-05-02] MEDS ORDERED: SODIUM CHLORIDE LOCK 10 ML ONE (09:59)
[2024-05-02] MEDS ORDERED: MIDAZOLAM HCL 2MG/2ML 2ml VIAL (1mg/ml) ONE (09:59)
[2024-05-02] MEDS ORDERED: fentaNYL CITRATE 100 MCG/2 ML VL ONE (09:59)
[2024-05-02] MEDS ORDERED: ONDANSETRON HCL 4 MG/2 ML VIAL ONE (09:59)
[2024-05-02] MEDS ORDERED: MEPERIDINE HCL (50 MG/ML) 1 ML VIAL ONE (09:59)
[2024-05-02] MEDS ORDERED: PROPOFOL 10 MG/ML 20 ML IV ONE (09:59)
[2024-05-02] MEDS: KETOROLAC TROMETH 30 MG/ML 1ML VIAL IV ONE (10:45)
[2024-05-02] MEDS: ACCU-CHEK COMFORT CURVE STRIP VI ONE (10:45)
[2024-05-02] MEDS ORDERED: MORPHINE SULFATE INJ 2 MG/ml SYRG IV PRN (10:45)
[2024-05-02] MEDS ORDERED: fentaNYL CITRATE 100 MCG/2 ML VL IV PRN (10:45)
[2024-05-02] MEDS: METOCLOPRAMIDE HCL 5MG/ml INJ 2ml VIAL IV ONE (10:45)
[2024-05-02] MEDS ORDERED: HYDROmorphone HCL 2 MG/ML VL/or syr IV PRN ×2 (10:45)
[2024-05-02 13:55] VITALS: BP 163/87; PULSE 105; RESP 18; TEMP 98.1; O2SAT 95
[2024-05-02 17:12] VITALS: BP 139/85; PULSE 110; RESP 17; TEMP 98.2; O2SAT 97
[2024-05-02 20:00] VITALS: PULSE 95; RESP 18; O2SAT 95
[2024-05-02 21:00] VITALS: BP 147/68; PULSE 99; RESP 18; TEMP 98.9; O2SAT 95
[2024-05-03] VITALS (9 sets, daily range): BP systolic 144–179; BP diastolic 64–80; PULSE 91–104; RESP 17–22; TEMP 37; O2SAT 94–97
[2024-05-03] MEDS: hydrALAZINE HCL 20 MG/ML VL IV PRN (04:19)
[2024-05-03 06:59] LABS: Basophils # (auto) 0.1 10 ^3/uL (0-0.2); Eosinophils # (auto) 0.2 10 ^3/uL (0-0.8); Hemoglobin 9.3 g/dL (12.2-16.2); Lymphocytes # (auto) 1.6 10 ^3/uL (0.4-5.4)
[2024-05-03 07:02] LABS: Basophils % (auto) 0.7 % (0.0-2.0); Eosinophils % (auto) 2.2 % (0.0-7.0); Hematocrit 28.2 % (36.0-46.0); Lymphocytes % (auto) 14.1 % (10.0-50.0); Mean Corpuscular Volume 90.9 fL (80.0-100.0); Monocytes # (auto) 0.6 10 ^3/uL (0-1.3); Neutrophils # (auto) 8.7 10 ^3/uL (1.6-8.6); Nucleated Red Blood Cells % 0.1 %; Platelet Count (auto) 508 10^3/uL (140-450); Red Cell Distribution Width 14.9 % (11.8-14.3); White Blood Cell 11.1 10^3/uL (4.4-10.8)
[2024-05-03 07:36] LABS: Calcium 8.3 mg/dL (8.7-10.4); Chloride 108 mmol/L (98-107); Potassium 3.8 mmol/L (3.5-5.1); Sodium 139 mmol/L (136-145)
[2024-05-03 07:37] LABS: Anion Gap 6 (5-15); Carbon Dioxide 25 mmol/L (20-30)
[2024-05-03 07:42] LABS: BUN/Creatinine Ratio 23.1 (10.0-20.0); Blood Urea Nitrogen 18 mg/dL (9-23); Glucose 105 mg/dL (74-106)
[2024-05-03] MEDS ORDERED: ROCURONIUM 10MG/ML 10ML VIAL IV ONE (11:07)
[2024-05-03] MEDS ORDERED: LEVO500T91 PO (14:00)
[2024-05-04 05:00] VITALS: BP 162/83; PULSE 88; RESP 17; TEMP 98.3; O2SAT 96
[2024-05-04 08:00] VITALS: PULSE 94; RESP 18; O2SAT 97
[2024-05-04 13:22] VITALS: BP 153/85; PULSE 99; RESP 18; TEMP 98.6; O2SAT 96
[2024-05-04 17:00] VITALS: BP 144/86; PULSE 61; RESP 18; TEMP 98.7; O2SAT 99
[2024-05-04 21:00] VITALS: BP 144/88; PULSE 89; RESP 20; TEMP 97.8; O2SAT 97
[2024-05-04] MEDS: MORPHINE SULFATE INJ 2 MG/ml SYRG IV PRN (21:47)
[2024-05-05 05:00] VITALS: BP 151/71; PULSE 86; RESP 18; TEMP 98.4; O2SAT 97
[2024-05-05 08:00] VITALS: PULSE 89; RESP 20; O2SAT 95
[2024-05-05 08:30] VITALS: BP 102/83; PULSE 89; RESP 20; TEMP 98.4; O2SAT 95
[2024-05-05 12:50] VITALS: BP 154/82; PULSE 90; RESP 18; TEMP 98.4; O2SAT 92
== END 2024-05-05 13:35 | disposition home or self-care (01) | DRG 465 ==
LOC: EDBD 11:50 → ER 11:53 → OVERFLOW 17:08 → CENTRAL 22:32
PROVIDERS: ADMIT Hospitalist; ATTEND Hospitalist
PROC: 0PSJ04Z Reposition Left Radius with Internal Fixation Device, Open Approach (ICD-10-PCS; principal; 2024-05-01 07:31)
PROC: 0JBN0ZZ Excision of Right Lower Leg Subcutaneous Tissue and Fascia, Open Approach (ICD-10-PCS; 2024-05-02)
DX: S52.552A Other extraarticular fracture of lower end of left radius, initial encounter for closed fracture (principal); S52.602A Unspecified fracture of lower end of left ulna, initial encounter for closed fracture; E11.621 Type 2 diabetes mellitus with foot ulcer; I10 Essential (primary) hypertension; F17.210 Nicotine dependence, cigarettes, uncomplicated; L97.509 Non-pressure chronic ulcer of other part of unspecified foot with unspecified severity; S91.301A Unspecified open wound, right foot, initial encounter; W18.39XA Other fall on same level, initial encounter; F41.9 Anxiety disorder, unspecified; Z79.2 Long term (current) use of antibiotics; Z79.899 Other long term (current) drug therapy; Z79.84 Long term (current) use of oral hypoglycemic drugs; Y93.89 Activity, other specified; Y92.89 Other specified places as the place of occurrence of the external cause; Y99.8 Other external cause status; Z79.4 Long term (current) use of insulin
CPT/HCPCS: 36415; 71045; 73100; 73630; 76000; 80048; 80202; 81001; 82962; 83036; 83735; 85025; 85610; 86850; 86900; 86901; 87077; 87086; 87186; 87205; 96365; 97110; 97163; 97530; 99291; G0378; J1815; J1885; J2001; J2250; J2405; J2704; J3490